=== PATIENT | male | born 1965 | race African-American/Black ===

== ENCOUNTER 2018-01-25 10:23 | Emergency (ER) | payer SELFPAY ==
[~2018-01-25] VITALS: Ht 185.4 cm; Wt 94.0 kg
[2018-01-25] MEDS ORDERED: AZITHROMYCIN 500 MG TABLET PO ONE (11:30)
[2018-01-25] MEDS ORDERED: CEFTRIAXONE SODIUM 250 MG/VIAL IM ONE (11:30)
[2018-01-25] MEDS ORDERED: LIDOCAINE HCL 1% 20ML VIAL (Pyxis) INJ INFIL ONE (11:30)
[2018-01-25 11:56] LABS: CLARITY URINE CLEAR (CLEAR); COLOR URINE YELLOW (YELLOW); KETONES URINE NEGATIVE (NEGATIVE); LEUKOCYTE ESTERASE URINE 1+ (NEGATIVE); NITRITE URINE NEGATIVE (NEGATIVE); OCCULT BLOOD URINE NEGATIVE (NEGATIVE); PH URINE 5.5 (4.5-8.0); PROTEIN URINE NEGATIVE (NEGATIVE); SPECIFIC GRAVITY URINE 1.024 (1.005-1.030); UROBILINOGEN URINE 0.2 E.U./dL (0.2-1.0)
[2018-01-25] MEDS: LIDOCAINE HCL/PF 1% 10 MG/ML 5ML VIAL IJ NR ×3 (12:03→12:08)
[2018-01-25 13:04] VITALS: BP 122/78
== END 2018-01-25 14:10 | disposition home or self-care (01) ==
LOC: ER 11:32
DX: N34.2 Other urethritis (principal); Z96.651 Presence of right artificial knee joint; Z87.19 Personal history of other diseases of the digestive system
CPT/HCPCS: 81003; 87086; 96372; 99284; J0696; J3490

== ENCOUNTER 2018-12-03 19:20 | Emergency (ER) | payer SELFPAY ==
[~2018-12-03] VITALS: Ht 185.4 cm; Wt 88.9 kg
[2018-12-03] MEDS ORDERED: AZITHROMYCIN 500 MG TABLET PO ONE (23:30)
[2018-12-03] MEDS ORDERED: CEFTRIAXONE SODIUM 250 MG/VIAL IM ONE (23:30)
[2018-12-04 00:02] VITALS: BP 134/78
[2018-12-06 04:15] LABS: CHLAMYDIA TRACHOMATIS NAA Negative (Negative); NEISSERIA GONORRHOEAE NAA Negative (Negative)
== END 2018-12-04 00:03 | disposition home or self-care (01) ==
LOC: ER 23:05
DX: Z20.2 Contact with and (suspected) exposure to infections with a predominantly sexual mode of transmission (principal)
CPT/HCPCS: 87491; 87591; 96372; 99283; J0696

== ENCOUNTER 2019-02-21 09:34 | Emergency (ER) | payer SELFPAY ==
[~2019-02-21] VITALS: Ht 182.9 cm; Wt 94.0 kg
[2019-02-21 09:58] VITALS: BP 142/69
[2019-02-21] MEDS ORDERED: PREDNISONE 20MG TABLET PO ONE (11:15)
[2019-02-21] MEDS ORDERED: ALBUTEROL (0.5%) 2.5MG/0.5ML NEB HHN ONE (11:15)
[2019-02-21] MEDS ORDERED: AZITHROMYCIN 500 MG TABLET PO SCH (12:15)
[2019-02-21] MEDS ORDERED: CEFTRIAXONE SODIUM 250 MG/VIAL IM ONE (12:15)
== END 2019-02-21 12:35 | disposition home or self-care (01) ==
LOC: ER 09:34
DX: J06.9 Acute upper respiratory infection, unspecified (principal); A64 Unspecified sexually transmitted disease
CPT/HCPCS: 71045; 94640; 96372; 99283; J0696; J7512; J7611; Z7610

== ENCOUNTER 2019-08-01 14:21 | Emergency (ER) | payer MEDICAID ==
[~2019-08-01] VITALS: Ht 195.6 cm; Wt 88.0 kg
[2019-08-01 19:27] VITALS: BP 128/71
== END 2019-08-01 19:28 | disposition home or self-care (01) ==
LOC: ER 14:26
DX: R05 Cough (principal); R06.02 Shortness of breath; Z98.890 Other specified postprocedural states
CPT/HCPCS: 71045; 99283

== ENCOUNTER 2019-09-22 00:50 | Emergency (ER) | payer MEDICAID ==
[~2019-09-22] VITALS: Ht 185.4 cm; Wt 90.0 kg
[2019-09-22 01:31] VITALS: BP 122/70
== END 2019-09-22 02:02 | disposition home or self-care (01) ==
LOC: ER 00:50
DX: R05 Cough (principal); L53.8 Other specified erythematous conditions
CPT/HCPCS: 99282; 99283

== ENCOUNTER 2022-02-15 21:06 | Emergency (ER) | payer SELFPAY ==
[~2022-02-15] VITALS: Ht 185.4 cm; Wt 95.0 kg
[2022-02-15 21:17] VITALS: BP 120/74
[2022-02-15] MEDS ORDERED: CEFTRIAXONE SODIUM 1 G/VIAL IM ONE (23:15)
[2022-02-15] MEDS ORDERED: DOXY100T2 MT (23:18)
[2022-02-15 23:19] LABS: CLARITY URINE CLEAR (CLEAR); COLOR URINE YELLOW (YELLOW); KETONES URINE NEGATIVE (NEGATIVE); LEUKOCYTE ESTERASE URINE NEGATIVE (NEGATIVE); NITRITE URINE NEGATIVE (NEGATIVE); OCCULT BLOOD URINE NEGATIVE (NEGATIVE); PH URINE 7.5 (4.5-8.0); PROTEIN URINE NEGATIVE (NEGATIVE); SPECIFIC GRAVITY URINE 1.012 (1.005-1.030)
[2022-02-18 05:09] LABS: NEISSERIA GONORRHOEAE NAA Negative (Negative)
== END 2022-02-15 23:44 | disposition home or self-care (01) ==
LOC: ER 21:06
DX: Z20.2 Contact with and (suspected) exposure to infections with a predominantly sexual mode of transmission (principal)
CPT/HCPCS: 81003; 87491; 87591; 96372; 99283; J0696

== ENCOUNTER 2023-01-18 00:47 | Emergency (ER) | payer BC ==
[~2023-01-18] VITALS: Ht 185.4 cm; Wt 91.0 kg
[~2023-01-18 00:47] MED LIST: DOXY100T2 MT
[2023-01-18 01:33] VITALS: BP 120/83; PULSE 69; RESP 16; TEMP 98.2; O2SAT 98
== END 2023-01-18 02:29 | disposition left against medical advice (07) ==
LOC: ER 00:47
DX: Z53.21 Procedure and treatment not carried out due to patient leaving prior to being seen by health care provider (principal)
CPT/HCPCS: 99281